=== PATIENT | male | born 1945 | race Caucasian/White ===

== ENCOUNTER → 2022-01-04 | Outpatient (CLI) | payer MEDICARE, OTHER | END | disposition home or self-care (01) | LOC: LAB SHORT 10:45 | DX: N39.0 Urinary tract infection, site not specified (principal) | CPT/HCPCS: 87086 ==

== ENCOUNTER → 2023-02-06 | Outpatient (CLI) | payer MEDICARE, OTHER | END | disposition home or self-care (01) | LOC: LAB 10:35 → LAB SHORT 10:35 | DX: N41.1 Chronic prostatitis (principal) | CPT/HCPCS: 87086 ==

== ENCOUNTER → 2025-04-16 | Outpatient (CLI) | payer MEDICARE, OTHER ==
[~2025-04-16] MED LIST: ALBU90OI; TAMS.4ER
== END ==
LOC: LAB 09:26 → LAB SHORT 09:26
DX: N39.0 Urinary tract infection, site not specified (principal)
CPT/HCPCS: 87086

== ENCOUNTER → 2025-04-21 | Outpatient (CLI) | payer MEDICARE, OTHER ==
[2025-04-21 09:34] LABS: Source, Urine Voided
[2025-04-21 09:59] LABS: Red Blood Cells, Urine 0-2 /hpf (0-2)
== END ==
LOC: LAB SHORT 08:42 → LAB 08:42
PROVIDERS: Physician Assistant
DX: R31.29 Other microscopic hematuria (principal)
CPT/HCPCS: 81015

== ENCOUNTER → 2025-04-27 | Outpatient (CLI) | payer MEDICARE, OTHER ==
[2025-04-27 13:02] LABS: Protein, Urine Quantitative 29.8 mg/dL (0.0-11.9)
== END | disposition home or self-care (01) ==
LOC: LAB 07:15 → LAB SHORT 07:15
PROVIDERS: Physician Assistant
DX: R80.9 Proteinuria, unspecified (principal)
CPT/HCPCS: 84156